=== PATIENT | female | born 1975 | race Caucasian/White ===

== ENCOUNTER 2017-07-08 20:55 | Emergency (ER) | payer BC ==
[2017-07-08 22:17] VITALS: BP 141/94
== END 2017-07-08 22:17 | disposition home or self-care (01) ==
LOC: ED 20:55
DX: M25.561 Pain in right knee (principal); I10 Essential (primary) hypertension; Z88.0 Allergy status to penicillin; Z88.5 Allergy status to narcotic agent; Z79.899 Other long term (current) drug therapy
CPT/HCPCS: J1885

== ENCOUNTER 2020-05-01 19:16 | Emergency (ER) | payer BC, SELFPAY ==
[~2020-05-01] VITALS: Ht 162.6 cm; Wt 117.9 kg
[2020-05-01 19:44] VITALS: Ht 162.6 cm; Wt 117.9 kg
[2020-05-01 22:05] VITALS: BP 141/79
== END 2020-05-01 22:05 | disposition home or self-care (01) ==
LOC: ED 19:16
DX: U07.1 COVID-19 (principal); J45.909 Unspecified asthma, uncomplicated; Z88.5 Allergy status to narcotic agent; Z88.0 Allergy status to penicillin; Z98.890 Other specified postprocedural states
CPT/HCPCS: Q0092; U0003-CS

== ENCOUNTER 2020-05-23 16:43 | Emergency (ER) | payer BC ==
[~2020-05-23] VITALS: Ht 162.6 cm; Wt 99.8 kg
[2020-05-23 16:54] VITALS: Ht 162.6 cm; Wt 99.8 kg
[2020-05-23 21:08] LABS: BASOPHIL % 0.5 % (0-2); PLATELET COUNT 295 x10^3mcL (130-400)
[2020-05-23 21:12] LABS: RED CELL DISTRIBUTION WIDTH 15.5 % (11.5-14.5)
[2020-05-23 21:21] LABS: CALCIUM 8.4 mg/dL (8.5-10.1); CHLORIDE SERUM 101 mmol/L (98-107); CREATININE SERUM 0.8 mg/dL (0.6-1.0); GFR1 > 60 mL/min; GLUCOSE SERUM 87 mg/dL (74-106); POTASSIUM SERUM 3.3 mmol/L (3.5-5.1); SODIUM SERUM 138 mmol/L (136-145)
[2020-05-23 21:33] LABS: ALBUMIN 3.4 g/dL (3.4-5.0); ALKALINE PHOSPHATASE 147 U/L (46-116); ALT/SGPT 29 U/L (14-59); AST/SGOT 17 U/L (15-37); BILIRUBIN TOTAL 0.6 mg/dL (0.20-1.00); LACTIC DEHYDROGENASE (LDH) 221 U/L (100-190); TOTAL PROTEIN, SERUM 7.6 g/dL (6.4-8.2)
[2020-05-23 22:05] VITALS: BP 131/69
== END 2020-05-23 22:05 | disposition home or self-care (01) ==
LOC: ED 16:43
PROVIDERS: Specialist
DX: U07.1 COVID-19 (principal); J45.901 Unspecified asthma with (acute) exacerbation; I10 Essential (primary) hypertension; Z98.890 Other specified postprocedural states; Z91.041 Radiographic dye allergy status; Z88.0 Allergy status to penicillin; Z88.5 Allergy status to narcotic agent
CPT/HCPCS: 36600; 83880; 87804; J2930; J7030; Q0092